=== PATIENT | male | born 1995 | race African-American/Black ===

== ENCOUNTER 2020-12-08 01:26 | Emergency (ER) | payer OTHER ==
[~2020-12-08] VITALS: Ht 175.3 cm; Wt 136.1 kg
--- NOTE | 2020-12-08 01:35 | NUR ---
pt bibself c/o epigastric pain x1 day. Pt aaox4 breathing evenly and unlabored. Pt states "none of my food feels like its being digested, it just sits" Pt attached to monitor and pox. at bedside for eval. skin warm, dry, and intact. Left ac 20g initiated, blood obtained and sent to lab. pt given blanket and calllight within reach
--- NOTE | 2020-12-08 01:38 | NUR ---
emt at bedside for ekg
[2020-12-08] MEDS ORDERED: MAG HYDROX/AL HYDROX/SIMETH 30 ML UDC ONE (01:40)
[2020-12-08] MEDS ORDERED: LIDOCAINE VISCOUS 2% UD 15 ML UDC ONE (01:40)
[2020-12-08 01:58] LABS: BASOPHILS # (AUTO) 0.1 /CMM (0.0-0.2); BASOPHILS % (AUTO) 0.4 % (0.0-2.0); EOSINOPHILS % (AUTO) 2.8 % (0.0-6.0); HEMATOCRIT 44 % (39-51); HEMOGLOBIN 13.6 g/dL (13.5-17.5); LYMPHOCYTES # (AUTO) 2.9 /CMM (0.8-4.8); LYMPHOCYTES % (AUTO) 23.8 % (20.0-44.0); MEAN CORPUSCULAR HGB CONC 31 g/dl (31.0-36.0); MEAN CORPUSCULAR VOLUME 72 fL (80-96); MONOCYTES # (AUTO) 1.2 /CMM (0.1-1.30); MONOCYTES % (AUTO) 9.9 % (2.0-12.0); NEUTROPHILS # (AUTO) 7.8 /CMM (1.8-8.9); NEUTROPHILS % (AUTO) 63.1 % (43.0-81.0); PLATELET COUNT (AUTO) 379 /CMM (150-450); WHITE BLOOD COUNT (AUTO) 12.4 K/uL (4.3-11.0)
[2020-12-08] MEDS ORDERED: MAG HYDROX/AL HYDROX/SIMETH 30 ML UDC PO ONE (02:00)
[2020-12-08] MEDS ORDERED: LIDOCAINE VISCOUS 2% UD 15 ML UDC MM ONE (02:00)
--- NOTE | 2020-12-08 02:04 | NUR ---
xray at bedside
[2020-12-08 02:06] LABS: CALCIUM, SERUM 8.8 mg/dL (8.5-10.1); CARBON DIOXIDE 32 mmol/L (21-32); CHLORIDE 101 mmol/L (98-107); GLUCOSE 105 mg/dL (74-106); POTASSIUM 3.5 mmol/L (3.5-5.1); SODIUM SERUM 138 mmol/L (136-145); UREA NITROGEN, BLOOD 11 mg/dL (7-18)
--- NOTE | 2020-12-08 02:33 | NUR ---
pt placed on 1L O2 for comfort
--- NOTE | 2020-12-08 02:56 | NUR ---
Patient discharged to home in stable condition. Written and verbal after care instructions given. Patient verbalizes understanding of instruction. IV removed. Catheter intact and site benign. Pressure and 4x4 applied to site. No bleeding noted. Pt ambulatory with a steady gait
[2020-12-08 03:03] VITALS: BP 150/80
== END 2020-12-08 02:56 | disposition home or self-care (01) ==
LOC: ER 01:28
DX: R07.89 Other chest pain (principal)
CPT/HCPCS: 36415; 71045-TC; 80048-TC; 84484-TC; 85025-TC

== ENCOUNTER 2022-04-16 23:04 | Inpatient (IN) | payer OTHER ==
[~2022-04-16] VITALS: Ht 175.3 cm; Wt 183.3 kg
--- NOTE | 2022-04-16 23:28 | NUR ---
BIBS C/O MID EPIGASTRIC PAIN [id number] WITH BILATERAL LEG SWELLING SINCE DECEMBER. PATIENT ALERT AND ORIENTED X4. AMBULATORY WITH NON LABORED BREATHING IN BED 06 ON MONITOR AND POX, AWAITING MD MABRY.
--- NOTE | 2022-04-16 23:33 | NUR ---
BLOOD DRAWN AND SENT TO LAB
[2022-04-16] MEDS ORDERED: LIDOCAINE VISCOUS 2% UD 15 ML UDC ONE (23:39)
[2022-04-16] MEDS ORDERED: MAG HYDROX/AL HYDROX/SIMETH 30 ML UDC ONE (23:39)
[2022-04-17] MEDS ORDERED: LIDOCAINE VISCOUS 2% UD 15 ML UDC MM ONE
[2022-04-17] MEDS ORDERED: MAG HYDROX/AL HYDROX/SIMETH 30 ML UDC PO ONE
[2022-04-17 00:03] LABS: BASOPHILS % (AUTO) 0.4 % (0.0-2.0); EOSINOPHILS % (AUTO) 0.9 % (0.0-6.0); HEMATOCRIT 41 % (39-51); HEMOGLOBIN 12.4 g/dL (13.5-17.5); LYMPHOCYTES # (AUTO) 2.7 K/uL (0.8-4.8); LYMPHOCYTES % (AUTO) 32.1 % (20.0-44.0); MEAN CORPUSCULAR HGB CONC 30 g/dl (31.0-36.0); MEAN CORPUSCULAR VOLUME 66 fL (80-96); MONOCYTES % (AUTO) 11.6 % (2.0-12.0); NEUTROPHILS # (AUTO) 4.7 K/uL (1.8-8.9); PLATELET COUNT (AUTO) 328 K/uL (150-450); RED BLOOD CELL COUNT(AUTO) 6.22 MIL/uL (4.5-6.0); WHITE BLOOD COUNT (AUTO) 8.5 K/uL (4.3-11.0)
--- NOTE | 2022-04-17 00:14 | NUR ---
STERILE SUPPLY TECHNICIAN AT PT'S BEDSIDE
[2022-04-17 00:34] LABS: ALANINE AMINOTRANSFERASE 19 U/L (12-78); ALBUMIN 2.8 g/dL (3.4-5.0); ALKALINE PHOSPHATASE 84 U/L (46-116); ASPARTATE AMINOTRANSFERASE 18 U/L (15-37); BILIRUBIN,DIRECT 0.3 mg/dL (0.0-0.2); BILIRUBIN,TOTAL 0.8 mg/dL (0.2-1.0); CALCIUM, SERUM 8.2 mg/dL (8.5-10.1); GLUCOSE 104 mg/dL (74-106); TOTAL PROTEIN, SERUM 8.2 g/dL (6.4-8.2); UREA NITROGEN, BLOOD 10 mg/dL (7-18)
[2022-04-17 00:51] LABS: D-DIMER 1.52 mg/L(FEU (0.17-0.50)
--- NOTE | 2022-04-17 00:57 | NUR ---
TROP 111
[2022-04-17] MEDS ORDERED: ASPIRIN 325 MG TABLET PO ONE (01:00)
--- NOTE | 2022-04-17 01:03 | NUR ---
COVID SWAB COLLECTED AND SENT TO LAB
[2022-04-17] MEDS ORDERED: ASPIRIN 325 MG TABLET ONE (01:04)
[2022-04-17 01:09] LABS: CARBON DIOXIDE 29 mmol/L (21-32); CHLORIDE 104 mmol/L (98-107); SODIUM SERUM 142 mmol/L (136-145)
[2022-04-17] MEDS ORDERED: IOHEXOL-350 100 ML VIAL IV ONE (01:31)
[2022-04-17] MEDS ORDERED: FUROSEMIDE 40 MG/4 ML VIAL IV ONE (04:00)
[2022-04-17] MEDS ORDERED: ACETAMINOPHEN 325 MG TABLET PO PRN (04:00)
[2022-04-17] MEDS ORDERED: ONDANSETRON HCL/PF 4 MG/2 ML VIAL IVP PRN (04:00)
[2022-04-17] MEDS ORDERED: MAGNESIUM HYDROXIDE 30 ML UDC PO PRN (04:00)
[2022-04-17] MEDS ORDERED: ZOLPIDEM TARTRATE 5 MG TABLET PO PRN (04:00)
[2022-04-17] MEDS ORDERED: MAG HYDROX/AL HYDROX/SIMETH 30 ML UDC PO PRN (04:00)
[2022-04-17] MEDS ORDERED: Z GUARD REMEDY 4 OZ OINT TP PRN (04:00)
--- NOTE | 2022-04-17 07:10 | NUR ---
RECEIVED PT from ELLEN RN PT AEWAKE AND ALERT dineses chest pain no sob
--- NOTE | 2022-04-17 07:13 | NUR ---
REPORT GIVEN TO LIANA LAMBERT FOR [facility]
[2022-04-17] MEDS ORDERED: FUROSEMIDE 40 MG/4 ML VIAL ONE (07:52)
--- NOTE | 2022-04-17 08:00 | NUR ---
wating for room
--- NOTE | 2022-04-17 08:30 | NUR ---
RN NOTE RECEIVED REPORT FROM PETRA SHERWOOD FROM ED.
--- NOTE | 2022-04-17 08:35 | NUR ---
TO ROOM 115-2 VIA JEAN PIERRE HAND OFF TO JOHN RNSTABLE CONDITION NO CHEST PAIN
--- NOTE | 2022-04-17 08:39 | NUR ---
[facility] CARDIO GRAM DONE AT BED SIDE
--- NOTE | 2022-04-17 08:48 | NUR ---
PRELIMINARY ECHO SHOWED EF 25-30%. ADVISED SOLAR POOL HEATING INSTALLER OF INITIAL RESULTS.
--- NOTE | 2022-04-17 08:55 | NUR ---
RN NOTE PT TRANSFERRED FROM ED BY PETRA CLAYTON. VS:BP 134/97 O2 SAT 94% ON RA, TEMP: 98.7 F ORAL, HR: 125. PT A0X4, AMBULATORY, URINAL AT BEDSIDE. CARDIAC READING ST. EDEMA BLLE NOTED, PHOTOS TAKEN AND PLACED IN CHART, WOUND CONSULT ORDERED. LAC #18 FLUSHED AND PATENT. NO PAIN NOTED AT THIS TIME. BELONGINGS ACCOUNTED FOR. ALL SAFETY MEASURES IN PLACE, BED LOCKED IN LOWEST POSITION. WILL CONTINUE TO MONITOR THROUGHOUT SHIFT.
[2022-04-17] MEDS: ASPIRIN 81 MG TAB.CHEW PO SCH (10:40)
[2022-04-17 11:13] LABS: BASOPHILS % (AUTO) 0.5 % (0.0-2.0); EOSINOPHILS % (AUTO) 1.7 % (0.0-6.0); HEMATOCRIT 42 % (39-51); HEMOGLOBIN 12.6 g/dL (13.5-17.5); LYMPHOCYTES # (AUTO) 3.9 K/uL (0.8-4.8); LYMPHOCYTES % (AUTO) 40.9 % (20.0-44.0); MEAN CORPUSCULAR HGB CONC 30 g/dl (31.0-36.0); MEAN CORPUSCULAR VOLUME 66 fL (80-96); MONOCYTES # (AUTO) 1.1 K/uL (0.1-1.30); NEUTROPHILS # (AUTO) 4.2 K/uL (1.8-8.9); NEUTROPHILS % (AUTO) 44.9 % (43.0-81.0); PLATELET COUNT (AUTO) 351 K/uL (150-450); RED BLOOD CELL COUNT(AUTO) 6.34 MIL/uL (4.5-6.0); WHITE BLOOD COUNT (AUTO) 9.4 K/uL (4.3-11.0)
[2022-04-17] MEDS: SPIRONOLACTONE 25 MG TABLET PO SCH (11:57)
[2022-04-17] MEDS: APIXABAN 5 MG TABLET PO SCH ×2 (11:58→16:57)
[2022-04-17] MEDS: CARVEDILOL 6.25 MG TABLET PO SCH ×2 (11:59→21:38)
[2022-04-17 12:00] VITALS: BP 143/90
[2022-04-17 12:05] LABS: CALCIUM, SERUM 8.6 mg/dL (8.5-10.1); CREATININE 1.1 mg/dL (0.6-1.3); POTASSIUM 3.8 mmol/L (3.5-5.1)
[2022-04-17 12:11] LABS: ALBUMIN 2.8 g/dL (3.4-5.0); MAGNESIUM 1.9 mg/dL (1.8-2.4); PHOSPHORUS 4.5 mg/dL (2.5-4.9); TOTAL PROTEIN, SERUM 8.6 g/dL (6.4-8.2)
[2022-04-17 12:19] LABS: THYROID STIMULATING HORMONE 3.905 uIU/mL (0.358-3.74)
--- NOTE | 2022-04-17 12:28 | NUR ---
RN NOTE CRITICAL LAB VALUE: TROPONIN LEVEL 118. JAVIER ATKINSON DNP NOTIFIED. DNP AWARE.
[2022-04-17] MEDS: PANTOPRAZOLE 40 MG TABLET.DR PO SCH (15:41)
[2022-04-17 16:00] VITALS: BP 163/90
[2022-04-17] MEDS ORDERED: hydrALAZINE HCL 10 MG TABLET PO PRN (17:00)
--- NOTE | 2022-04-17 19:13 | NUR ---
RN CLOSING NOTE PT IS RESTING IN BED A0X4, ABLE TO MAKE NEEDS KNOWN. NO COMPLAINTS OF PAIN NOTED AT THIS TIME. TELE READING ST WITH HR OF 108. BLE EDEMA NOTED, SKIN INTACT. BREATHING ON ROOM AIR AT 97% 02 SAT. PATIENT IS AMBULATORY, URINAL AT BEDSIDE. LAC #18 PATENT, FLUSHED AND INTACT. ALL SAFETY MEASURES IN PLACE, BED LOCKED IN LOWEST POSITION. WILL ENDORSE CONTINUITY OF CARE TO ORAL HEALTH THERAPIST NURSE.
--- NOTE | 2022-04-17 19:15 | NUR ---
RN NOTES RECEIVED PT FOR CONTINUITY OF CARE. PATIENT A/OX4 IN NO S/SX OF ACUTE DISTRESS AT THIS TIME; CURRENTLY ON 2L OF 02 VIA NC; WITH 02 SAT >95% AT THIS TIME. PT'S GF AT BEDSIDE. WITH IV ACCESS ON L AC#18 PATENT, INTACT AND FLUSHING WELL. ENSURE SAFETY MEASURES WITHIN THE SHIFT. PATIENT BED ALARM IS ON. HEAD OF BED ELEVATED. BED IS LOCKED, IN LOWEST POSITION AND SIDE RAILS UP. CALL LIGHT WITHIN REACH OF THE PATIENT. WILL CONTINUE TO MONITOR AND REASSESS FOR ANY CHANGES AND WILL CARRY OUT ANY ONGOING AND ACTIVE MD ORDER.
[2022-04-17 20:00] VITALS: BP 110/75
[2022-04-17 20:17] LABS: BAND % (MANUAL) 1 % (0.0-5.0); EOSINOPHILS % (MANUAL) 1 % (0-4); LYMPHOCYTES % (MANUAL) 45 % (16-48); MONOCYTES % (MANUAL) 8 % (0-11.0); NEUTROPHILS % (MANUAL) 45 (42-76)
[2022-04-18] VITALS: BP 134/87
[2022-04-18 04:00] VITALS: BP 130/72
--- NOTE | 2022-04-18 04:00 | NUR ---
RN NOTES PATIENT REMAINED TO BE IN NO SIGNS OF ACUTE RESPIRATORY DISTRESS , SAFE ENVIRONMENT MAINTAINED FOR PT. AM PATIENT CARE ASSISTANCE RENDERED. WILL CONTINUE TO MONITOR AND REASSESS FOR ANY CHANGES THROUGHOUT THE SHIFT.
--- NOTE | 2022-04-18 06:50 | NUR ---
RN CLOSING NOTE: PATIENT REMAINS IN ROOM IN NO SIGNS OF RESPIRATORY DISTRESS, PATIENT STILL ON 2L OF 02 VIA NC;TOLERATING WELL SATURATING @ >95% SP02. SAFETY MEASURES IMPLEMENTED, BED IN LOWEST POSITION, LOCKED, SIDE RAILS UP, CALL LIGHT WITHIN REACH. ALL NEEDS AND ORDERS ADDRESSED DURING THE SHIFT. IV ACCESS MAINTAINED INTACT, SECURED AND FLUSHING WELL. ALL DUE MEDS GIVEN ORDERED & SCHEDULED ; PATIENT TOLERATED WELL. PATIENT KEPT CLEAN AND COMFORTABLE WITHIN THE SHIFT. PATIENT ENDORSED TO INCOMING SHIFT RN WITH STABLE VITAL SIGN AND FOR CONTINUITY OF CARE.
[2022-04-18 06:55] LABS: BASOPHILS % (AUTO) 0.3 % (0.0-2.0); EOSINOPHILS % (AUTO) 2.3 % (0.0-6.0); HEMATOCRIT 44 % (39-51); HEMOGLOBIN 12.9 g/dL (13.5-17.5); LYMPHOCYTES # (AUTO) 2.9 K/uL (0.8-4.8); LYMPHOCYTES % (AUTO) 37.5 % (20.0-44.0); MEAN CORPUSCULAR HGB CONC 29 g/dl (31.0-36.0); MEAN CORPUSCULAR VOLUME 69 fL (80-96); MONOCYTES # (AUTO) 0.8 K/uL (0.1-1.30); NEUTROPHILS # (AUTO) 3.7 K/uL (1.8-8.9); NEUTROPHILS % (AUTO) 48.9 % (43.0-81.0); PLATELET COUNT (AUTO) 341 K/uL (150-450); RED BLOOD CELL COUNT(AUTO) 6.43 MIL/uL (4.5-6.0); WHITE BLOOD COUNT (AUTO) 7.6 K/uL (4.3-11.0)
[2022-04-18 08:00] VITALS: BP 123/73
[2022-04-18] MEDS: CARVEDILOL 6.25 MG TABLET PO SCH ×2 (08:06→21:00)
[2022-04-18] MEDS: SPIRONOLACTONE 25 MG TABLET PO SCH (08:06)
[2022-04-18] MEDS: PANTOPRAZOLE 40 MG TABLET.DR PO SCH (08:06)
[2022-04-18] MEDS: ASPIRIN 81 MG TAB.CHEW PO SCH (08:06)
[2022-04-18] MEDS: APIXABAN 5 MG TABLET PO SCH ×2 (08:08→16:21)
[2022-04-18 10:04] LABS: POTASSIUM 4.2 mmol/L (3.5-5.1)
[2022-04-18 10:05] LABS: CALCIUM, SERUM 8.7 mg/dL (8.5-10.1); PHOSPHORUS 4.4 mg/dL (2.5-4.9)
[2022-04-18] MEDS: VALSARTAN 80 MG TABLET PO SCH (10:34)
[2022-04-18 12:00] VITALS: BP 118/87
[2022-04-18 16:00] VITALS: BP 101/65
--- NOTE | 2022-04-18 18:30 | NUR ---
RN NOTE IV INFILTRATED, REMOVED. ZAINA ATKINSON OK TO KEEP PT WITHOUT IV ACCESS AT THIS TIME.
[2022-04-18 20:00] VITALS: BP 108/71
[2022-04-19] VITALS: BP 110/77
[2022-04-19 04:00] VITALS: BP 136/81
--- NOTE | 2022-04-19 06:49 | NUR ---
PERFORMANCE TEST ENGINEER CLOSING NOTE PT IN BED, ASLEEP, A/O X4, ON NC 3LPM WIT OPTIMAL O2 SAT LEVEL, NO SOB/ACUTE DISTRESS NOTED, NSR ON TELE MONITOR, LAST NIGHT RECEIVED PATIENT WITH NO IV ACCESS, AND PER [place] OK TO NOT HAVE IV ACCESS, OTHERWISE NO SIGNIFICANT CHANGE IN CONDITION DURING THE NIGHT, ALL SAFETY MEASURES IN PLACE, CALL LIGHT WITHIN REACH AT ALL TIMES, WILL ENDORSE CONTINUITY OF CARE TO ONCOMING NURSE.
--- NOTE | 2022-04-19 07:20 | NUR ---
GIMP TACKER OPENING NOTE: PATIENT IN BED IN NO SIGNS OF RESPIRATORY DISTRESS, PATIENT STILL ON 2L OF 02 VIA NC;TOLERATING WELL SATURATING @ >95% SP02. SAFETY MEASURES IMPLEMENTED, BED IN LOWEST POSITION, LOCKED, SIDE RAILS UP, CALL LIGHT WITHIN REACH.PT DOES NOT HAVE IV ACCESS PER REPORT [place] HERRERA SAID IS OK TO BE WITHOUT IV ACCESS. BED KEPT LOCKED AND IN LOW POSITION, CALL LIGHT WITHIN REACH.WILL MONITOR
[2022-04-19] MEDS: PANTOPRAZOLE 40 MG TABLET.DR PO SCH (07:35)
[2022-04-19 08:00] VITALS: BP 124/91
[2022-04-19] MEDS: CARVEDILOL 6.25 MG TABLET PO SCH ×2 (08:43→21:54)
[2022-04-19] MEDS: SPIRONOLACTONE 25 MG TABLET PO SCH (08:43)
[2022-04-19] MEDS: VALSARTAN 80 MG TABLET PO SCH (08:43)
[2022-04-19] MEDS: ASPIRIN 81 MG TAB.CHEW PO SCH (08:43)
[2022-04-19] MEDS: APIXABAN 5 MG TABLET PO SCH ×2 (08:45→16:50)
[2022-04-19] MEDS ORDERED: SACU1TAB7 PO (11:04)
[2022-04-19] MEDS ORDERED: ASPI-1169 PO (11:04)
[2022-04-19] MEDS ORDERED: SPIR25TA6 PO (11:04)
[2022-04-19] MEDS ORDERED: EMPA10TA PO (11:04)
[2022-04-19] MEDS ORDERED: CARV6.252 PO (11:04)
[2022-04-19] MEDS ORDERED: APIX5TAB PO (11:04)
[2022-04-19] MEDS ORDERED: PANT40TA49 PO (11:04)
[2022-04-19 12:00] VITALS: BP 117/79
[2022-04-19 12:06] LABS: *SPE A/G RATIO 0.6 (0.7-1.7); *SPE ALPHA-1-GLOBULIN 0.3 g/dL (0.0-0.4); *SPE ALPHA-2-GLOBULIN 0.8 g/dL (0.4-1.0); *SPE BETA GLOBULIN 1.6 g/dL (0.7-1.3); *SPE M-SPIKE Not Observed g/dL (Not Observed)
--- NOTE | 2022-04-19 14:00 | NUR ---
RN NOTES; PT IN BED AWAKE ALERT, GAVE HIMSELF A SHOWER WITH A FAMILY MEMBER, DENIED CHEST PAIN WILL MONITOR
[2022-04-19 16:00] VITALS: BP 113/77
--- NOTE | 2022-04-19 16:00 | NUR ---
RN NOTES: PT IS ASKING WHEN CAN HE GO HOME PER RAW STOCK MACHINE FEEDER SHE ORDERED THE LIFE VEST MAY BE TODAY OR TOMORROW HE CAN GO HOME SOON HE RECEIVE THE LIFE VEST, PT MADE AWARE
--- NOTE | 2022-04-19 19:42 | NUR ---
MULE TENDER CLOSING NOTE PT IN BED, ASLEEP, A/O X4, ON ROOM AIR,O2 SAT 99%, NO SOB/ACUTE DISTRESS NOTED, NSR ON TELE MONITOR, LAST NIGHT RECEIVED PATIENT WITH NO IV ACCESS, AND PER [place] OK TO NOT HAVE IV ACCESS, OTHERWISE NO SIGNIFICANT CHANGE IN CONDITION DURING THE DAY, ALL SAFETY MEASURES IN PLACE, CALL LIGHT WITHIN REACH AT ALL TIMES, WILL ENDORSE CONTINUITY OF CARE TO ONCOMING NURSE.
[2022-04-19 20:00] VITALS: BP 114/82
--- NOTE | 2022-04-19 20:00 | NUR ---
MS RN NOTE PT IN BED SITTING UP. A/O X 4, NO SOB, NO DISTRESS OR DISCOMFORT NOTED. ON TELE SR WITH PVC WITH INVERTER T WAVE HR 80. KEPT HIM DRY AND CLEAN. ALL NEEDS ATTENDED. VSS. CONTINUE TO MONITOR HIM.
[2022-04-20] VITALS: BP 99/56
[2022-04-20 04:00] VITALS: BP 106/72
--- NOTE | 2022-04-20 06:30 | NUR ---
RAILROAD CROSSING PROTECTION MAINTAINER NOTE NO CHANGE IN CONDITION. PT IN NO DISTRESS OR DISCOMFORT NOTED. ON TELE SR WITH PVC AND INVERTED T WAVE. HR 82 SIDE RAILS UP X 2 AND CALL LIGHT WITHIN REACH. WILL ENDORSE TO DAY SHIFT NURSE FOR CONTINUE TO CARE.
--- NOTE | 2022-04-20 07:43 | NUR ---
telemetry technician note patient in ed . alert , oriented x4 , able to eat breakfast self. on tele monitor sr hr 92 , on ra no sob noted , no c\o discomfort , all needs attended , on ra , safety measure provided, no iv hl at this time, , bed in lowest and locked position, call light within reach , will cont to monitor closely
[2022-04-20 08:00] VITALS: BP 114/85
[2022-04-20] MEDS: ASPIRIN 81 MG TAB.CHEW PO SCH (08:08)
[2022-04-20] MEDS: SPIRONOLACTONE 25 MG TABLET PO SCH (08:08)
[2022-04-20] MEDS: CARVEDILOL 6.25 MG TABLET PO SCH (08:08)
[2022-04-20] MEDS: PANTOPRAZOLE 40 MG TABLET.DR PO SCH (08:08)
[2022-04-20] MEDS: VALSARTAN 80 MG TABLET PO SCH (08:08)
[2022-04-20] MEDS: APIXABAN 5 MG TABLET PO SCH (08:10)
--- NOTE | 2022-04-20 10:30 | NUR ---
MANAGER ENVIRONMENTAL HEALTH AND SAFETY NOTE SEEN BY DR ALFONSO WITH POSSIBLE DISCHARGE AFTER LIFEVEST WILL BE DELIVERED
--- NOTE | 2022-04-20 11:48 | NUR ---
QUILLER OPERATOR NOTE CALLED TO WASTE WATER TREATMENT PLANT OPERATOR MIRNA ABOUT LIFE VEST STATED THAT WILL F\U WILL CONT TO MONITOR
[2022-04-20 12:00] VITALS: BP 107/73
--- NOTE | 2022-04-20 15:30 | NUR ---
telephone collector note life vest tech at bedside instructed patient how to use , understand c placed on his chest, called to pharmacy about his new px ,stated that meds ready to picking table worker
[2022-04-20 16:00] VITALS: BP 120/74
--- NOTE | 2022-04-20 16:30 | NUR ---
telegraph repeater installer note discharge instruction given ,understands . instructed how to take new px and possible side effects , pharmacy called , also instructed to f\u with life vest with information systems consultant and f\u with primary care doctor and for sleep study , tele removed, no hl, belonging checked by jorge Rosario ,niece will pickle processor jeremias by private care. left hospital with stable condition , walked to lobby with jorge
== END 2022-04-20 16:35 | disposition home or self-care (01) | DRG 190 ==
LOC: ER 23:16 → TRANSITION 04-17 05:19 → TELE1 04-17 08:32
PROVIDERS: ADMIT Nurse Practitioner Acute Care; ATTEND Nurse Practitioner Acute Care
DX: I21.4 Non-ST elevation (NSTEMI) myocardial infarction (principal); I50.23 Acute on chronic systolic (congestive) heart failure; E43 Unspecified severe protein-calorie malnutrition; D68.59 Other primary thrombophilia; I42.9 Cardiomyopathy, unspecified; I11.0 Hypertensive heart disease with heart failure; E66.01 Morbid (severe) obesity due to excess calories; I25.10 Atherosclerotic heart disease of native coronary artery without angina pectoris; G47.33 Obstructive sleep apnea (adult) (pediatric); Z20.822 Contact with and (suspected) exposure to COVID-19; Z91.013 Allergy to seafood
CPT/HCPCS: 36415; 71045-TC; 80048-TC; 80053-TC; 80061-TC; 80076-TC; 82728-TC; 83540-TC; 83735-TC; 83880; 84100-TC; 84155; 84165; 84439-TC; 84443-TC; 84484-TC; 85025-TC; 85378-TC; 85730-TC; 87081-TC; 93307-TC; 93970-TC; C9803; G0378; J1940; J2405; Q9967